=== PATIENT | male | born 1965 | race Caucasian/White ===

== ENCOUNTER 2024-09-26 07:37 | Outpatient (REF) | payer OTHER, SELFPAY ==
--- NOTE | ~2024-09-26 | US_ITS ---
EXAMINATION: US RETROPERITONEAL COMPLETE (RENAL) CLINICAL INFORMATION: Hydroureter with renal and ureteral calculi. COMPARISON: None available. TECHNIQUE: Real-time imaging of the kidneys and bladder. FINDINGS: RIGHT KIDNEY: 10.4 x 5.4 x 4.2 cm (SAG x AP x TRV). The kidney is normal in size, contour, and echogenicity. Renal cortical thickness is normal. No calculi or focal parenchymal lesions. No hydronephrosis. LEFT KIDNEY: 10.7 x 105.2 cm (SAG x AP x TRV). The kidney is normal in size, contour, and echogenicity. Renal cortical thickness is normal. There is an echogenic calculi lower pole measuring 0.8 x 0.3 x 0.3 cm. No hydronephrosis. BLADDER: Well distended with echogenic debris visualized in the bladder. No bladder wall thickness seen. Bilateral ureteral jets are demonstrated. Prevoid bladder volume is 253 mL. Postvoid bladder volume is 16.9 mL. US/US retroperitoneal comp IMPRESSION: Echogenic stone lower pole left kidney. No hydronephrosis of either side. Small post void bladder volume of 16.9 mL with echogenic debris within the bladder. Electronically signed by: Karsten Mandel MD 09/26/2024 04:24 PM EST
== END 2024-09-26 07:38 | disposition home or self-care (01) ==
LOC: HO.UMASIMG 07:37
PROVIDERS: Visit Provider Family Medicine
DX: N13.2 Hydronephrosis with renal and ureteral calculous obstruction (principal)
CPT/HCPCS: 76770

== ENCOUNTER → 2024-09-26 15:30 | Outpatient (BNV) | payer OTHER, SELFPAY | PROVIDERS: Visit Provider Radiology Diagnostic Radiology | DX: N13.2 Hydronephrosis with renal and ureteral calculous obstruction (principal) | CPT/HCPCS: 76770 ==